=== PATIENT | male | born 1970 | race Caucasian/White ===

== ENCOUNTER → 2022-03-24 08:31 | Outpatient (CLI) | payer SELFPAY ==
[2022-03-25 06:52] LABS: Testosterone,Total 669 ng/dL (264-916)
== END ==
PROVIDERS: Visit Provider Nurse Practitioner Family
DX: N52.9 Male erectile dysfunction, unspecified (principal)
CPT/HCPCS: 36415; 84403

== ENCOUNTER 2024-03-25 17:22 | Emergency (ER) | payer SELFPAY ==
[2024-03-25 18:50] VITALS: BP 120/77; PULSE 86; RESP 20; TEMP 36.7; O2SAT 97; BMI 34.4
--- NOTE | 2024-03-25 19:11 | ED_ITS ---
Discharge Plan Disposition Patient Disposition: Home, Self-Care Condition: Good Prescriptions Prescriptions: New Debrox 6.5 % drops 5 drp otic (ear) BID PRN (Reason: ear wax) 4 Days Qty: 15 0RF Rx Instructions: do not use medication for more than 4 days at a time Referrals Follow up/Referrals: Margie Nguyen APRN [Primary Care Provider] - See instructions Activity Restrictions/Add. Instructions Additional Instructions/Restrictions: Follow up with your Family doctor if needed Use Debrox drops for Ear wax impaction as directed Return if needed Straight to ER if any life threateing symptoms Clinical Impressions Clinical Impression: Impacted ear wax Qualifiers: Laterality: left Qualified Code(s): H61.22 - Impacted cerumen, left ear Instructions Patient Instructions: DI for Cerumen Impaction Discharge ED Provider: Taty Voss [facility] General Stated complaint: bilateral ear pain Mode of Arrival: Ambulatory Source of Information: Patient Limitations: No Limitations Time Seen by Provider: 03/25/24 19:12 Description of Symptoms (Recalled from Triage Doc. by RN): PATIENT C/O LEFT EAR STOPPED UP. HE STATES IT COMES AND GOES FOR THE PAST MONTH HEENT Symptoms (Recalled from RN notes): Yes Resp Symptoms (Recalled from RN notes): No Skin Symptoms (Recalled from RN notes): No MS Symptoms (Recalled from RN notes): No Functional Status (Recalled from RN notes): WNL History of Present Illness Provider Complaint: Patient states that for the last month he has been having issues with his left ear feeling stopped up state that he has tried to get it clear but not been able too States he has tried peroxide, qtip and other OTC tactics but none has worked and today he give up and come in to get it checked and see if we could get it unstopped Related Data Previous Rx's Medication Instructions Recorded carbamide peroxide 6.5 % ear drops 5 drp otic (ear) BID PRN ear wax 4 03/25/24 (Debrox) days #15 mL Allergies Allergy/AdvReac Type Severity Reaction Status Date / Time No Known Allergies Allergy Verified 01/04/19 13:16 Worker's Comp Is this a Worker's Comp case?: No [facility] Disclaimer: The information contained in this section may have been updated after the patient was seen, as this information can be updated by other users. Medical History (Updated 03/25/24 @ 19:17 by Taty Voss APRN) Diabetes mellitus, type 2 Social History Smoking Status: Current every day smoker alcohol intake: never current occupational status: employed Travel in the last 8 weeks: None ROS Obtained: Yes All systems reviewed & no additional complaints except as documented and Yes Systems reviewed as appropriate & no additional complaints except as documented Constitutional Constitutional: Reports system reviewed and no additional complaints, except as documented and Reports as per HPI ENT Ears, Nose, Mouth, and Throat: Reports system reviewed and no additional complaints, except as documented, Reports as per HPI and Reports otalgia (left ear stopped up) Physical Exam General General appearance: alert and in no apparent distress ENT ENT exam: Present mucous membranes moist Expanded ENT Exam TM/Canal exam: Left TM: cerumen impaction Respiratory Respiratory exam: Present normal lung sounds bilaterally; Absent respiratory distress or wheezes Cardiovascular Cardiovascular exam: Present regular rate, normal rhythm and normal heart sounds Neurological Exam Neurological exam: Present alert, oriented X3 and normal gait Medical Decision Making Nabeel Inquiry Pt receiving controlled substance: No Nabeel was queried for this patient: No Vital Signs: 03/25/24 18:50 Temperature 98.1 F Temperature Source Oral Pulse Rate [Left Brachial] 86 Respiratory Rate 20 Blood Pressure [Left Arm] 120/77 Blood Pressure Mean [Left Arm] 91 Blood Pressure Source [Left Arm] Automatic Cuff Blood Pressure Position [Left Arm] Sitting 02 Sat by Pulse Oximetry 97 Oxygen Delivery Method Room Air Procedures Ear Wax Removal Left Ear: Cerumenolytic Used: other Results: Re-examined: cerumen removed completely TM Examination: TM(s) intact, normal appearance Ear Canal Exam: atraumatic Patient Tolerated Procedure: well and no complications Complications: no problems Technique: ear canal irrigated
[2024-03-25 19:24] VITALS: BP 120/77; PULSE 86; RESP 20; TEMP 36.7; O2SAT 97
== END 2024-03-25 19:31 | disposition home or self-care (01) ==
PROVIDERS: Emergency Provider Nurse Practitioner; PCP Nurse Practitioner
DX: H92.02 Otalgia, left ear (principal); H61.22 Impacted cerumen, left ear
CPT/HCPCS: 69209; 99204; 99213; G0463